=== PATIENT | female | born 1945 | race Caucasian/White ===

== ENCOUNTER → 2019-05-25 09:29 | Outpatient (BNVA) | payer MEDICARE, SELFPAY | PROVIDERS: Family Provider Internal Medicine; PCP Nurse Practitioner; Visit Provider Internal Medicine | DX: E83.52 Hypercalcemia (principal); E03.9 Hypothyroidism, unspecified | CPT/HCPCS: 80048; 80061; 82310; 83970; 84450; 84460; 85025 ==

== ENCOUNTER 2019-12-11 15:39 | Outpatient (CLI) | payer MEDICARE, SELFPAY ==
--- NOTE | 2019-12-11 15:58 | XR_ITS ---
WS: [id number] DEXA (DUAL ENERGY X-RAY ABSORPTIOMETRY) Bone mineral density was performed using a Coghead machine. HISTORY: STATUS ASYMPTOMATIC POSTMENOPAUSAL COMPARISON: None available. Lumbar spine BMD (L1-L4): 1.077 g/cm2 T score: -0.9 Z score: 0.4 Total hip BMD: Left: 0.877 g/cm2. T score: -1.0 Z score: 0.3 Right: 0.944 g/cm2. T score: -0.5 Z score: 0.8 10 year probability of a major osteoporotic fracture is 16%. XR/XR DEXA axial skeleton* [id number] IMPRESSION: Normal bone mineral density based upon the WHO classification for females.
== END 2019-12-11 15:40 | disposition home or self-care (01) ==
PROVIDERS: Family Provider Internal Medicine; PCP Internal Medicine; Visit Provider Internal Medicine
DX: Z78.0 Asymptomatic menopausal state (principal)
CPT/HCPCS: 77080

== ENCOUNTER 2020-05-24 11:59 | Outpatient (CLI) | payer MEDICARE, SELFPAY ==
--- NOTE | 2020-05-24 12:08 | MM_ITS ---
WS: [id number] BILATERAL SCREENING DIGITAL MAMMOGRAM WITH CAD HISTORY: SCREENING COMPARISON: 11/22/2017 and 09/28/2014 Bilateral CC and MLO views submitted. Computer aided detection analyzed. Breast composition: The breasts are heterogeneously dense, which may obscure small masses. No suspici ous masses, microcalcifications or architectural distortion. Benign calcifications in the LEFT breast . MM/[place] [id number] IMPRESSION: BI-RADS: 2-Benign FOLLOW UP: 1 Year Follow-up
== END 2020-05-24 12:00 | disposition home or self-care (01) ==
LOC: RADSHAW 12:03
PROVIDERS: PCP Internal Medicine; Visit Provider Internal Medicine
DX: Z12.31 Encounter for screening mammogram for malignant neoplasm of breast (principal)
CPT/HCPCS: 77067

== ENCOUNTER 2020-08-07 15:26 | Outpatient (CLI) | payer MEDICARE, SELFPAY ==
--- NOTE | 2020-08-07 15:49 | XR_ITS ---
WS: [id number] RIGHT KNEE: 3 VIEW(S) TECHNIQUE: AP, oblique(s) and lateral. HISTORY: RIGHT KNEE PAIN COMPARISON: 03/06/2019 No fracture or dislocation. Moderate narrowing medial compartment with hypertrophic osteophytes at the joint line. Mild narrowing of the lateral patellofemoral compartments. No soft tissue abnormality. XR/XR knee RT 3V* [id number] IMPRESSION: 1. Moderate medial compartment osteoarthritis with mild progression since 02/17. 2. No fracture.
--- NOTE | 2020-08-07 15:49 | XR_ITS ---
WS: [id number] RIGHT HIP HISTORY: HIP JOINT PAIN, RIGHT COMPARISON: None available. Right hip: No acute fracture or dislocation. Very minimal sclerosis and cortical irregularity involvi ng the superior rim of the acetabulum. No bone destruction. No soft tissue abnormality. XR/XR hip RT 2-3V wo/w pel* [id number] IMPRESSION: 1. No hip fracture. 2. Mild RIGHT hip osteoarthritis.
--- NOTE | 2020-08-07 15:49 | XR_ITS ---
WS: [id number] LEFT KNEE: 3 VIEW(S) TECHNIQUE: AP, oblique(s) and lateral. HISTORY: Pain. COMPARISON: 03/06/2019 Mild to moderate narrowing of the medial compartment with small to moderate osteophytes at the joint line. Mild narrowing of the patellofemoral compartment. No loose body or fracture. No joint effusion. No soft tissue abnormality. XR/XR knee LT 3V* [id number] IMPRESSION: Mild to moderate medial compartment osteoarthritis, unchanged since 03/06/2019.
--- NOTE | 2020-08-07 15:49 | XR_ITS ---
WS: [id number] LUMBAR SPINE: 6 VIEWS TECHNIQUE: AP, lateral, obliques and L5-S1 spot. Lateral views in neutral, flexion and extension. HISTORY: BACK PAIN COMPARISON: None. Mild LEFT curvature scoliosis. Very minimal retrolisthesis by approximately 2 mm of L2 and L3. With f lexion and extension no instability is evident. Disc spaces are mildly narrowed throughout. Moderate facet joint arthritis at L4-5 and L5-S1. No frac tures. No bone destruction. Mild atherosclerosis aorta. XR/XR lumbar spine 6V w f/e [id number] IMPRESSION: 1. Mild LEFT curvature lumbar spine and degenerative scoliosis. 2. Facet joint arthropathy is moderate L4-5 and L5-S1. 3. No instability.
== END 2020-08-07 15:27 | disposition home or self-care (01) ==
PROVIDERS: PCP Internal Medicine; Visit Provider Nurse Practitioner Family
DX: M43.8X6 Other specified deforming dorsopathies, lumbar region (principal); M41.86 Other forms of scoliosis, lumbar region; M47.816 Spondylosis without myelopathy or radiculopathy, lumbar region; M47.817 Spondylosis without myelopathy or radiculopathy, lumbosacral region; M17.0 Bilateral primary osteoarthritis of knee; M16.11 Unilateral primary osteoarthritis, right hip
CPT/HCPCS: 72114; 73502; 73562

== ENCOUNTER 2020-10-09 06:00 | Outpatient (RCR) | payer MEDICARE, SELFPAY | END 2020-10-16 23:59 | disposition home or self-care (01) | LOC: APT 06:00 | PROVIDERS: PCP Internal Medicine; Referring Provider Internal Medicine; Visit Provider Internal Medicine | DX: R29.6 Repeated falls (principal); R20.9 Unspecified disturbances of skin sensation; M54.9 Dorsalgia, unspecified | CPT/HCPCS: 97110; 97112; 97162 ==

== ENCOUNTER 2020-10-11 12:24 | Outpatient (CLI) | payer MEDICARE, SELFPAY ==
--- NOTE | 2020-10-11 12:45 | USCV_ITS ---
Jessi Martínez Age: 75 Gender: F : 1945 Exam Date: 10/11/2020 12:53 Ordering Phys: Dai Gresham MD Technologist: Kaylee Rolle Exam Location: [facility] [place] Indication: edema PROCEDURES: Venous duplex imaging was performed in only the right lower extremity. In addition, the posterior tibial and peroneal trunk were evaluated. On the right side, the common femoral, superficial femoral, profunda femoral, popliteal, posterior tibial, greater saphenous veins and the peroneal trunk were identified and interrogated in the standard fashion. FINDINGS: Normal 2-D Doppler and augmentation and compressibility throughout the lower extremity venous structures. Additional imaging through the proximal calf veins also reveals no thrombus. Limited evaluation of the greater saphenous vein is patent with no thrombus.. CONCLUSIONS No DVT right lower extremity. Dr. Marlene Rangel DO (Electronically Signed) Final Date: 11 October 2020 14:06 S
== END 2020-10-11 12:25 | disposition home or self-care (01) ==
LOC: RAD 12:26
PROVIDERS: PCP Internal Medicine; Visit Provider Internal Medicine
DX: R60.9 Edema, unspecified (principal)
CPT/HCPCS: 93971

== ENCOUNTER 2020-10-17 06:00 | Outpatient (RCR) | payer MEDICARE, SELFPAY | END 2020-11-16 23:59 | disposition home or self-care (01) | LOC: APT 06:00 | PROVIDERS: PCP Internal Medicine; Referring Provider Internal Medicine; Visit Provider Internal Medicine | DX: R29.6 Repeated falls (principal); R20.9 Unspecified disturbances of skin sensation; M54.9 Dorsalgia, unspecified | CPT/HCPCS: 97110 ==

== ENCOUNTER 2020-11-04 09:01 | Outpatient (CLI) | payer MEDICARE, SELFPAY ==
[2020-11-04 09:00] VITALS: BMI 30.6
--- NOTE | 2020-11-04 10:02 | NMCV_ITS ---
NM destiny perf SPECT r/s* [id number] Jessi Martínez Age: 75 Gender: F : 1945 Exam Date: 11/04/2020 10:02 Ordering Phys: Dai Gresham MD Technologist: ALEX Lee Exam Location: [facility] Indications: SHORTNESS OF BREATH STRESS TEST Please see separate stress test report in [facility] for full findings IMAGE PROTOCOL Rest/Stress 1 Lexiscan Day Radiopharmaceutical Dose (mCi) Administration Site Administered by Rest: Tc-99m 10.7 IV ALEX Lee Sestamibi Stress:Tc-99m 32.3 IV ALEX Carrasco Sestamibi Rest: 04-Nov-2020 60 Discovery 630 Stress: 04-Nov-2020 30 Discovery 630 0.4mg Lexiscan. Images obtained in supine and prone position. SPECT RESULTS Technical Quality: Excellent Raw Data Analysis: Normal Image Corrections: No attenuation or motion correction applied Summed Stress Score: 0 Summed Rest Score: 0 Summed Difference Score: 0 PERFUSION FINDINGS SPECT images demonstrate homogeneous tracer distribution throughout the myocardium. FUNCTIONAL RESULTS (calculated via Gated SPECT) Stress Image LV EF (%): 76 Stress EDV (mL):76 TID: 0.98 Stress ESV (mL):18 FUNCTIONAL FINDINGS: The left ventricle is normal in size. Transient Ischemia Dilatation of 0.98. There is normal left ventricular systolic function. The left ventricular ejection fraction is normal with a value of 76%. There is normal left ventricular wall thickening with no regional wall motion abnormality. Normal end-diastolic end-systolic volumes. IMPRESSIONS 1. Myocardial perfusion imaging is normal. 2. Overall left ventricular systolic function is normal without regional wall motion abnormalities. 3. The left ventricular ejection fraction is normal with a value of 76%. 4. EKG portion of the study will be reported separately. 5. Scan indicates low risk for cardiac events. Smitha Chester MD (Electronically Signed) Final Date: 04 November 2020 18:39 S
--- NOTE | 2020-11-04 10:02 | ECG_ITS ---
[facility] Test Date: 2020-11-04 Pat Name: Jessi Martínez Department: Room: Gender: Female Outpatient Facility Physical Therapist: : 1945 Requested By: Dai Wise Order Number: [id number] Vicky MD: Baltazar Claros M.D. Interpretive Statements NAME OF STUDY: LEXISCAN SESTAMIBI STRESS TEST INDICATION: [Shortness of Breath] Procedure: At the baseline, the blood pressure was 150/87 mmHg with a heart rate of 63 bpm. The electrocardiogram showed normal sinus rhythm, normal axis with normal ST and T's. The Lexiscan was infused over a period of 20 seconds. A total of 0.4 mg of Lexiscan was infused. The stress phase was continued for a total of 5 minutes. Heart rate was at the end of stress phase was 74 bpm and a blood pressure of 145/81 mmHg. The EKG at the peak infusion revealed since normal sinus rhythm with no significant ST-T wave changes. Sestamibi was injected 20 seconds after the Lexiscan infusion. Blood pressure at the end of recovery phase was 136/76 mmHg with a heart rate of 68 bpm. Conclusion: 1. Normal EKG response to Lexiscan infusion 2. No Lexiscan induced chest pain or cardiac arrhythmia. 3. Normal blood pressure and heart rate response. 4. Sestamibi/sestamibi perfusion scan pending; see separate report. Electronically Signed On 12-02-2020 9:24:44 CDT by Baltazar Claros M.D. [id number]
[2020-11-04] MEDS: regadenoson 0.4 Mg/5 ml Syringe IVP (11:28)
[2020-11-04 11:33] VITALS: BP 136/76; PULSE 74
== END 2020-11-04 09:02 | disposition home or self-care (01) ==
PROVIDERS: PCP Internal Medicine; Visit Provider Internal Medicine
DX: R06.02 Shortness of breath (principal)
CPT/HCPCS: 78452; 93017; A9500; J2785

== ENCOUNTER 2021-05-12 15:45 | Outpatient (CLI) | payer MEDICARE, SELFPAY ==
--- NOTE | 2021-05-12 16:02 | XR_ITS ---
WS: [id number] Humerus RIGHT TECHNIQUE: 2 views of the right humerus CLINICAL INFORMATION: PAIN R ARM AFTER FALL COMPARISON: None. FINDINGS: Osteopenia. Normal anatomic alignment. No acute humeral fractures. Degenerative arthritis right gleno humeral joint with narrowing of the subacromial space. XR/[place] [id number] IMPRESSION: No acute humeral fractures.
--- NOTE | 2021-05-12 16:02 | XR_ITS ---
WS: [id number] SHOULDER RIGHT TECHNIQUE: 3 views of the right shoulder CLINICAL INFORMATION: PAIN IN R SHOULDER AFTER FALL COMPARISON: None. FINDINGS: Mild degenerative arthritis AC joint. Moderate degenerative arthritis glenohumeral joint. Narrowing o f the subacromial space. No acute fractures. Thoracic curve convex right. Right lung appears well aer ated. XR/XR shoulder RT min 2V* [id number] IMPRESSION: 1. Mild degenerative arthritis AC joint. 2. Moderate degenerative arthritis glenohumeral joint. 3. Narrowing of the subacromial space. 4. No acute fractures
== END 2021-05-12 15:46 | disposition home or self-care (01) ==
LOC: RAD 15:51
PROVIDERS: PCP Internal Medicine; Visit Provider Internal Medicine
DX: M19.011 Primary osteoarthritis, right shoulder (principal); W19.XXXA Unspecified fall, initial encounter
CPT/HCPCS: 73030; 73060

== ENCOUNTER 2021-10-08 05:27 | Emergency (ER) | payer MEDICARE, SELFPAY ==
[2021-10-08 05:27] VITALS: BMI 29.1
--- NOTE | 2021-10-08 05:29 | ECG_ITS ---
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 Measurements Intervals [place] Rate: 90 P: 56 CA: 166 QRS: -3 QRSD: 98 T: 37 QT: 351 QTc: 431 Interpretive Statements SINUS RHYTHM POSSIBLE LEFT ATRIAL ENLARGEMENT [-0.1mV P-WAVE IN V1/V2] LOW QRS VOLTAGE IN PRECORDIAL LEADS [QRS DEFLECTION < 1.0 mV IN CHEST LEADS] Compared to ECG 10/10/2014 02:44:10 No significant changes Electronically Signed On 10-08-2021 22:27:51 CDT by Smitha Chester M.D. [id number]
--- NOTE | 2021-10-08 05:29 | XRR_ITS ---
PROCEDURE INFORMATION: Exam: XR Chest Exam date and time: 10/08/2021 5:50 AM Age: 76 years old Clinical indication: Angina and dyspnea; Patient HX: SOB chest pain this am; Additional info: Cp TECHNIQUE: Imaging protocol: Radiologic exam of the chest. Views: 1 view. COMPARISON: CR Chest 2 views* [id number] 10/14/2017 10:17 AM FINDINGS: Lungs: The lung parenchyma is clear. Pleural spaces: No pneumothorax. No pleural effusion. Heart/Mediastinum: The cardiomediastinal silhouette is within normal limits. Bones/joints: Unremarkable. XR/XR chest 1V portable [id number] IMPRESSION: No acute cardiopulmonary abnormality.
[2021-10-08 05:30] VITALS: BP 149/80; PULSE 91; RESP 16; TEMP 36.5; O2SAT 96
--- NOTE | 2021-10-08 05:43 | ED_ITS ---
Documented by User: Joycelyn Kamara MD 10/08/21 05:47 HPI - Chest Pain General: Chief Complaint: Chest Pain Stated Complaint: cp Time Seen by Provider: 10/08/21 05:30 Source: patient and EMS Mode of arrival: EMS Limitations: no limitations History of Present Illness: 76-year-old female who states that she started having chest pain at 2 AM. She states the pain was a pressure type pain in her chest that went to her left arm and left neck. States pain is originally 7 out of 10 she is given nitro in route and her pain is improved is currently 1 out of 10. Has had some shortness of breath as well denies any nausea or vomiting. Associated symptoms: Deny abdominal pain, dyspnea, fever(s), nausea or vomiting Review of Systems Const: Denies: fever(s), chills, body aches or change in appetite Eyes: Denies: blurry vision or eye discomfort ENMT: Denies: throat pain or dental pain Card: Reports: chest pain Resp: Denies: dyspnea GI: Denies: abdominal pain, nausea, vomiting or diarrhea : Denies: dysuria Musc: Denies: neck pain or back pain Skin/Breast: Denies: rash Neuro: Denies: headache(s) Psych: Denies: depression Serjio/Lymph: Denies: easy bruising All/Imm: Denies: urticaria PFS ED PFSH: Medical History (Updated 10/08/21 @ 09:01 by Luis Miguel Barrera DO) Hypertension Social History (Updated 10/08/21 @ 05:44 by Joycelyn Kamara MD) Smoking and tobacco status: never smoked Physical Exam Const: COMMON NORMALS: no acute distress, patient oriented x3 and healthy appearing HENMT: COMMON NORMALS: normocephalic and atraumatic HEAD & SCALP: normocephalic and atraumatic Eye: COMMON NORMALS: Equal, round and reactive pupils present and EOMs intact bilaterally PUPIL: Yes Equal, round and reactive pupils present Neck/C-Spine: COMMON NORMALS: full ROM and supple Chest: COMMONS NORMALS: normal inspection of the chest and normal palpation of entire chest wall Resp: COMMON NORMALS: normal respiratory effort, No retractions, No use of accessory muscles and clear to auscultation bilaterally AUSCULTATION: clear to auscultation bilaterally Cardio: COMMON NORMALS: regular rate, regular rhythm and No murmurs present (Cardio) RATE: regular rate RHYTHM: regular rhythm GI: COMMON NORMALS: Normal to inspection, nondistended, normoactive bowel sounds present, Soft to palpation, non-tender and no masses PALPATION: Yes Soft to palpation Extremity: COMMON NORMALS: normal to inspection and full ROM Neuro: COMMON NORMALS: patient oriented x3, moves all extremities and no focal motor deficits Psych: COMMON NORMALS: mental status grossly normal, Normal thought process present and cooperative THOUGHT PROCESS: Normal thought process present Skin: COMMON NORMALS: no rashes or lesions noted and no wounds GENERAL SKIN EXAM: no rashes or lesions noted Course Vital Signs: Vital signs: Vital Signs Temperature 97.7 F 10/08/21 05:30 Pulse Rate 91 10/08/21 05:30 Respiratory Rate 16 10/08/21 05:30 Blood Pressure 149/80 10/08/21 05:30 Pulse Oximetry 96 10/08/21 05:30 MDM - Chest Pain Lab Data : 10/08/21 05:49 10/08/21 05:49 Radiology Impressions Chest X-Ray 10/08/21 05:29 IMPRESSION: No acute cardiopulmonary abnormality. Laboratory Results WBC 5.4 10^3/uL (4.0-10.0) 10/08/21 05:49 RBC 4.07 10^6/uL (4.1-5.3) L 10/08/21 05:49 Hgb 11.7 g/dL (11.5-15.3) 10/08/21 05:49 Hct 35.1 % (37.0-47.0) L 10/08/21 05:49 MCV 86.2 fl (81-99) 10/08/21 05:49 MCH 28.7 pg (28.0-34.0) 10/08/21 05:49 MCHC 33.3 g/dL (30.0-36.0) 10/08/21 05:49 RDW 13.1 % (12.1-15.1) 10/08/21 05:49 Plt Count 260 10^3/cmm (130-400) 10/08/21 05:49 MPV 9.5 fL (7.4-10.4) 10/08/21 05:49 Neut % (Auto) 75.3 % 10/08/21 05:49 Lymph % (Auto) 8.9 % 10/08/21 05:49 Guadalupe % (Auto) 13.5 % 10/08/21 05:49 Eos % (Auto) 1.3 % 10/08/21 05:49 Baso % (Auto) 0.6 % 10/08/21 05:49 Neut # (Auto) 4.09 10^3/uL (1.8-7.7) 10/08/21 05:49 Lymph # (Auto) 0.5 10^3/uL (0.8-4.8) L 10/08/21 05:49 Guadalupe # (Auto) 0.7 10^3/uL (0.2-0.9) 10/08/21 05:49 Eos # (Auto) 0.1 10^3/uL (0.0-0.8) 10/08/21 05:49 Baso # (Auto) 0.0 10^3/uL (0.0-0.1) 10/08/21 05:49 Nucleated RBC % (auto) 0 % 10/08/21 05:49 Nucleated RBCs # 0.0 /100WBC 10/08/21 05:49 PT 14.50 SECONDS (12.1-14.9) 10/08/21 05:49 INR 1.10 (0.8-1.2) 10/08/21 05:49 D-Dimer 0.38 ug/mIFEU (0-0.59) 10/08/21 05:49 Sodium 135 mmol/L (136-145) L 10/08/21 05:49 Potassium 4.0 mmol/L (3.5-5.1) 10/08/21 05:49 Chloride 102 mmol/L (98-107) 10/08/21 05:49 Carbon Dioxide 23 mmol/L (22-29) 10/08/21 05:49 Anion Gap 14.0 (5-19) 10/08/21 05:49 BUN 12 mg/dL (8-23) 10/08/21 05:49 Creatinine 0.6 mg/dL (0.5-0.9) 10/08/21 05:49 GFR Calculation Not Reportable 10/08/21 05:49 Glucose 108 mg/dL (65-115) 10/08/21 05:49 Calculated Osmolality 280 mOsm/kg (285-295) L 10/08/21 05:49 Calcium 9.6 mg/dL (8.5-10.5) 10/08/21 05:49 Total Bilirubin 0.2 mg/dL (0.15-1.2) 10/08/21 05:49 AST 12 U/L (0-32) 10/08/21 05:49 ALT 11 U/L (0-33) 10/08/21 05:49 Alkaline Phosphatase 70 IU/L (35-105) 10/08/21 05:49 Troponin T Baseline 7 ng/L (0-10) 10/08/21 05:49 Troponin T 120 Minute 7.49 ng/L (0-10) 10/08/21 07:40 Delta Troponin T 0.49 ABS# (0-10) 10/08/21 07:40 Total Protein 6.8 g/dL (6.6-8.7) 10/08/21 05:49 Albumin 4.3 g/dL (3.5-5.2) 10/08/21 05:49 Globulin 2.5 g/dL (1.3-4.6) 10/08/21 05:49 Discharge Plan Discharge Patient Disposition: Home Clinical Impression: Atypical chest pain Prescriptions: New promethazine 25 mg tablet 25 mg PO QID PRN (Reason: nausea and vomiting) Qty: 14 0RF Discharge Orders: Discharge ED (Routine); Ordered 10/08/21 Ordered By: Luis Miguel Barrera Referrals: Dai Gresham MD [Primary Care Provider] - Discharge Diet: Advance as tolerated Discharge Activity: Increase activity as tolerated Patient Instructions: Opioid Safety Activity Restrictions/Additional Instructions: Follow-up with your primary care doctor. Return to emergency room if you have any worsening pain or difficulty. Sign Out Sign Out Data: Patient Sign Out occurred on 10/08/21 at 06:02. Patient's care was discussed, and care was transferred from to Luis Miguel Barrera DO. Coding Level of Care Code ED Customer Service Sales Associate for Chg Fwd Exam Comprehensive Documented by User: Luis Miguel Barrera DO 10/08/21 13:57 HPI - Chest Pain General: Chief Complaint: Chest Pain Stated Complaint: cp Time Seen by Provider: 10/08/21 05:30 [facility] ED PFSH: Medical History (Updated 10/08/21 @ 09:01 by Luis Miguel Barrera DO) Hypertension Social History (Updated 10/08/21 @ 05:44 by Joycelyn Kamara MD) Smoking and tobacco status: never smoked Course Vital Signs: Vital signs: Vital Signs Temperature 97.7 F 10/08/21 05:30 Pulse Rate 91 10/08/21 05:30 Respiratory Rate 16 10/08/21 05:30 Blood Pressure 149/80 10/08/21 05:30 Pulse Oximetry 96 10/08/21 05:30 MDM - Chest Pain Medical Decision Making Care assumed at change of shift. Patient no longer having any chest pain her second troponin is negative EKG unremarkable. The last 2 years she had a normal stress test. We will go ahead and discharge the patient home asked her to take aspirin daily she is getting quite a bit of nausea she reports more of her disc omfort is epigastric put her on promethazine as well recheck with primary care doctor return if is any further problems. Medical Records I reviewed the patient's medical records. Lab Data I reviewed the patient's lab results. : 10/08/21 05:49 10/08/21 05:49 Radiology Impressions Chest X-Ray 10/08/21 05:29
[2021-10-08 05:57] LABS: Basophils % 0.6 %; Eosinophils # 0.1 10^3/uL (0.0-0.8); Eosinophils % 1.3 %; Hematocrit 35.1 % (37.0-47.0); Hemoglobin 11.7 g/dL (11.5-15.3); Lymphocytes # 0.5 10^3/uL (0.8-4.8); Lymphocytes % 8.9 %; Mean Corpuscular HGB Conc 33.3 g/dL (30.0-36.0); Mean Corpuscular Hemoglobin 28.7 pg (28.0-34.0); Mean Corpuscular Volume 86.2 fl (81-99); Mean Platelet Volume 9.5 fL (7.4-10.4); Monocytes # 0.7 10^3/uL (0.2-0.9); Monocytes % 13.5 %; Neutrophils # 4.09 10^3/uL (1.8-7.7); Neutrophils % 75.3 %; Nucleated Red Blood Cells % 0 %; Platelet Count 260 10^3/cmm (130-400); Red Blood Count 4.07 10^6/uL (4.1-5.3); Red Cell Distribution Width 13.1 % (12.1-15.1); White Blood Count 5.4 10^3/uL (4.0-10.0)
[2021-10-08 06:07] LABS: D Dimer 0.38 ug/mIFEU (0-0.59)
[2021-10-08 06:11] LABS: Troponin(5th) Baseline 7 ng/L (0-10)
[2021-10-08 06:14] LABS: Alanine Aminotransferase 11 U/L (0-33); Albumin Level 4.3 g/dL (3.5-5.2); Alkaline Phosphatase 70 IU/L (35-105); Aspartate Amino Transferase 12 U/L (0-32); Blood Urea Nitrogen 12 mg/dL (8-23); Calcium 9.6 mg/dL (8.5-10.5); Carbon Dioxide 23 mmol/L (22-29); Chloride 102 mmol/L (98-107); Globulin 2.5 g/dL (1.3-4.6); Glucose 108 mg/dL (65-115); Osmolality Calculated 280 mOsm/kg (285-295); Sodium 135 mmol/L (136-145); Total Bilirubin 0.2 mg/dL (0.15-1.2); Total Protein 6.8 g/dL (6.6-8.7)
--- NOTE | 2021-10-08 06:29 | PC.NURSE ---
Pt. states that she has no pain at this time , that it comes and goes.
--- NOTE | 2021-10-08 07:29 | ECG_ITS ---
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 Measurements Intervals [place] Rate: P: OR: QRS: QRSD: T: QT: QTc: Interpretive Statements SINUS RHYTHM POSSIBLE LEFT ATRIAL ENLARGEMENT [-0.1mV P-WAVE IN V1/V2] WARNING: DATA QUALITY MAY AFFECT INTERPRETATION Compared to ECG 10/08/2021 05:42:01 No changes Electronically Signed On 10-08-2021 22:30:53 CDT by Smitha Chester M.D. [email or web address] [email or web address].[employer]/store/OM/[id number]
--- NOTE | 2021-10-08 07:41 | PC.NURSE ---
EKG done at 0720 and shown to ER doctor.
[2021-10-08] MEDS: ondansetron 2 mg/ML SDV 2 mL 4 MG IVP (07:50)
[2021-10-08 08:22] LABS: Troponin 5 2HR 7.49 ng/L (0-10)
[2021-10-08] MEDS: promethazine 25 mg/mL SDV 1 mL IM (09:00)
[2021-10-08 10:32] LABS: Troponin 5 2HR Delta 0.49 ABS# (0-10)
== END 2021-10-08 09:18 | disposition home or self-care (01) ==
PROVIDERS: Emergency Medicine; Emergency Provider Family Medicine; PCP Internal Medicine
DX: R07.89 Other chest pain (principal); I10 Essential (primary) hypertension
CPT/HCPCS: 71045; 80053; 84484; 85025; 85378; 85610; 93005; 96372; 96374; 99285; J2405; J2550

== ENCOUNTER 2021-12-24 11:45 | Outpatient (CLI) | payer MEDICARE, SELFPAY ==
--- NOTE | 2021-12-24 12:11 | XR_ITS ---
WS: [id number] LEFT KNEE: 4 VIEW(S) TECHNIQUE: AP, oblique(s) and lateral. HISTORY: PAIN IN LEFT KNEE COMPARISON: 08/07/2020 No fracture or dislocation. Moderate to severe medial compartment joint space narrowing with marginal osteophytes. Mild sclerosis along the joint articular surfaces. Very minimal progression since the prior study. Mild narrowing o f the patellofemoral compartment. Hypertrophic bone posterior to the femoral condyles. May be osteoph ytes or calcified loose bodies. No joint effusion. No soft tissue abnormality. XR/XR knee LT 4V [id number] IMPRESSION: 1. Mild progression of moderate to severe osteoarthritis in the medial compart ment. 2. No fracture.
--- NOTE | 2021-12-24 12:50 | XR_ITS ---
WS: [id number] RIGHT KNEE: 4 VIEW(S) TECHNIQUE: AP, oblique(s) and lateral. HISTORY: PAIN IN RIGHT KNEE COMPARISON: 08/07/2020 Progression of loss of joint space and degenerative changes in the knee. Bone upon bone in the medial compartment with marginal osteophytes. Mild narrowing of the lateral compartment and patellofemoral compartment. No joint effusion. No soft tissue abnormality. XR/XR knee RT 4V [id number] IMPRESSION: 1. Progression of medial compartment osteoarthritis. There is now bone upon lea ne. 2. No fracture.
== END 2021-12-24 11:46 | disposition home or self-care (01) ==
PROVIDERS: PCP Internal Medicine; Visit Provider Internal Medicine
DX: M17.0 Bilateral primary osteoarthritis of knee (principal)
CPT/HCPCS: 73564

== ENCOUNTER 2022-04-08 10:20 | Outpatient (CLI) | payer MEDICARE, OTHER, SELFPAY ==
--- NOTE | 2022-04-08 11:52 | XR_ITS ---
WS: [id number] Exam: XR chest 2V* [id number] Date/Time of Exam: 04/08/2022 11:55 AM Reason For Exam: PNEUMONIA, BACTERIAL Comparison 10/08/2021. The lungs are hyperinflated. No acute infiltrates are seen. Areas of chronic plaque atelectasis in th e lower lung zones. Normal cardiomediastinal silhouette. Dextroscoliosis of the lower T-spine. No ple ural effusions. XR/XR chest 2V* [id number] IMPRESSION: 1. Pulmonary hyperinflation which may indicate obstructive lung disease. No acu te process noted.
== END 2022-04-08 10:21 | disposition home or self-care (01) ==
PROVIDERS: PCP Internal Medicine; Visit Provider Internal Medicine
DX: J15.9 Unspecified bacterial pneumonia (principal)
CPT/HCPCS: 71046

== ENCOUNTER 2022-06-17 06:00 | Outpatient (RCR) | payer MEDICARE, OTHER, SELFPAY | END 2022-07-17 23:59 | disposition home or self-care (01) | LOC: APT 06:00 | PROVIDERS: PCP Internal Medicine; Visit Provider Student in an Organized Health Care Education/Training Program | DX: Z96.651 Presence of right artificial knee joint (principal); M17.11 Unilateral primary osteoarthritis, right knee | CPT/HCPCS: 97110; 97161 ==

== ENCOUNTER 2022-07-18 06:00 | Outpatient (RCR) | payer MEDICARE, OTHER, SELFPAY | END 2022-08-16 23:59 | disposition home or self-care (01) | LOC: APT 06:00 | PROVIDERS: PCP Internal Medicine; Visit Provider Student in an Organized Health Care Education/Training Program | DX: Z96.651 Presence of right artificial knee joint (principal) | CPT/HCPCS: 97110 ==

== ENCOUNTER 2022-08-17 06:00 | Outpatient (RCR) | payer MEDICARE, OTHER, SELFPAY | END 2022-09-16 23:59 | disposition home or self-care (01) | LOC: APT 06:00 | PROVIDERS: PCP Internal Medicine; Visit Provider Student in an Organized Health Care Education/Training Program | DX: Z96.651 Presence of right artificial knee joint (principal); Z47.1 Aftercare following joint replacement surgery | CPT/HCPCS: 97110 ==

== ENCOUNTER 2022-10-14 06:00 | Outpatient (RCR) | payer MEDICARE, OTHER, SELFPAY | END 2022-10-16 23:59 | disposition home or self-care (01) | LOC: APT 06:00 | PROVIDERS: Visit Provider Student in an Organized Health Care Education/Training Program | DX: Z47.1 Aftercare following joint replacement surgery (principal); Z96.652 Presence of left artificial knee joint | CPT/HCPCS: 97110; 97162 ==

== ENCOUNTER 2022-10-17 06:00 | Outpatient (RCR) | payer MEDICARE, OTHER, SELFPAY | END 2022-11-16 23:59 | disposition home or self-care (01) | LOC: APT 06:00 | PROVIDERS: Visit Provider Student in an Organized Health Care Education/Training Program | DX: Z47.1 Aftercare following joint replacement surgery (principal); Z96.652 Presence of left artificial knee joint | CPT/HCPCS: 97110; 97112; 97116; 97530 ==

== ENCOUNTER 2022-11-17 06:00 | Outpatient (RCR) | payer MEDICARE, SELFPAY | END 2022-12-09 23:59 | disposition home or self-care (01) | LOC: APT 06:00 | PROVIDERS: Visit Provider Student in an Organized Health Care Education/Training Program | DX: Z47.1 Aftercare following joint replacement surgery (principal); Z96.652 Presence of left artificial knee joint | CPT/HCPCS: 97110; 97530 ==

== ENCOUNTER 2023-03-24 12:54 | Outpatient (CLI) | payer MEDICARE, SELFPAY ==
--- NOTE | 2023-03-24 13:00 | XR_ITS ---
WS: [id number] DEXA (DUAL ENERGY X-RAY ABSORPTIOMETRY) Bone mineral density was performed using a Diurnal machine. HISTORY: ASYMPTOMATIC POSTMENOPAUSAL STATUS COMPARISON: 12/11/2019 Lumbar spine BMD (L1-L4): 1.097 g/cm2 T score: -0.7 Z score: 0.8 Total hip BMD: Left: 0.790 g/cm2. T score: -1.7 Z score: -0.1 Right: 0.842 g/cm2. T score: -1.3 Z score: 0.3 10 year probability of a major osteoporotic fracture is 22.1%. Compared to the prior study from 12/11/2019. Lumbar spine bone mineral density has increased by 1.9%. Bilateral hips bone mineral density has decreased by 10.3%. IMPRESSION: OSTEOPENIA based upon the WHO classification for females. Significant decrease in bone mineral density within the hips since the prior study. No significant ch fabian of bone mineral density in the lumbar spine.
--- NOTE | 2023-03-24 13:17 | MM_ITS ---
WS: [id number] BILATERAL 3D TOMOSYNTHESIS DIGITAL SCREENING MAMMOGRAPHY WITH CAD CLINICAL INFORMATION: SCREENING HISTORY: Screening mammogram. No current complaints. COMPARISON: 2020 TECHNIQUE: Bilateral CC and MLO views. FINDINGS: The breasts are composed of heterogeneous fibroglandular density tissue, which can limit the detectio n of small underlying mass lesions. No suspicious mass, asymmetry, calcifications, or architectural d istortion. No evidence of malignancy. Lucent centered calcifications LEFT breast. IMPRESSION: MM/[place] [id number] BI-RADS: 2-Benign FOLLOW UP: 1 Year Follow-up Recommend return to annual screening mammography.
== END 2023-03-24 12:55 | disposition home or self-care (01) ==
LOC: RAD 12:54
PROVIDERS: PCP Internal Medicine; Visit Provider Internal Medicine
DX: Z78.0 Asymptomatic menopausal state (principal); Z12.31 Encounter for screening mammogram for malignant neoplasm of breast; M85.80 Other specified disorders of bone density and structure, unspecified site
CPT/HCPCS: 77063; 77067; 77080

== ENCOUNTER 2023-07-22 09:12 | Outpatient (CLI) | payer MEDICARE, SELFPAY ==
--- NOTE | 2023-07-22 09:20 | XR_ITS ---
WS: [id number] Examination: XR chest 2V* [id number] Reason for Exam: CHRONIC COUGH Date: July 22, 2023 Comparison: April 08, 2022 Findings: The cardiomediastinal silhouette is within normal limits. There is no failure or effusion. There is no consolidation The lungs are hyperinflated. There is linear scarring again noted in the right middle lobe There is scoliosis with convexity of the thoracic spine to the right. Impression: No acute lung process is seen. Chronic changes are present.
== END 2023-07-22 09:13 | disposition home or self-care (01) ==
LOC: RAD 09:17
PROVIDERS: PCP Internal Medicine; Visit Provider Internal Medicine
DX: R05.3 Chronic cough (principal)
CPT/HCPCS: 71046

== ENCOUNTER 2023-08-12 10:52 | Outpatient (CLI) | payer MEDICARE, SELFPAY | END 2023-08-12 10:53 | disposition home or self-care (01) | PROVIDERS: PCP Internal Medicine; Visit Provider Internal Medicine | DX: R05.3 Chronic cough (principal) | CPT/HCPCS: 94060 ==